=== PATIENT | female | born 1965 | race Two or more races ===

== ENCOUNTER 2020-06-04 06:08 | Day surgery (SDC) | payer OTHER | END 2020-06-04 12:55 | disposition home or self-care (01) | LOC: AMB-ENDOS 06:08 | PROVIDERS: ATTEND Surgery | DX: K31.7 Polyp of stomach and duodenum (principal); K29.50 Unspecified chronic gastritis without bleeding; K31.89 Other diseases of stomach and duodenum; K44.9 Diaphragmatic hernia without obstruction or gangrene; Z20.828 Contact with and (suspected) exposure to other viral communicable diseases ==